=== PATIENT | male | born 1990 | race Two or more races ===

== ENCOUNTER 2023-06-09 12:13 | Emergency (ER) | payer OTHER ==
[~2023-06-09] VITALS: Ht 167.6 cm; Wt 86.2 kg
[2023-06-09] MEDS ORDERED: FLUVOXAMINE MA100 MG (14:25)
[2023-06-09] MEDS ORDERED: FLUOXETINE HCL20 M1 PO (14:25)
[2023-06-09] MEDS ORDERED: CLONAZEPAM0.5 MG PO (14:26)
== END 2023-06-09 17:40 | disposition home or self-care (01) ==
LOC: ER 12:14
DX: S01.421A Laceration with foreign body of right cheek and temporomandibular area, initial encounter (principal); W50.0XXA Accidental hit or strike by another person, initial encounter; Y93.89 Activity, other specified; Y92.89 Other specified places as the place of occurrence of the external cause